=== PATIENT | female | born 1975 | race African-American/Black ===

== ENCOUNTER 2021-01-15 21:26 | Emergency (ER) | payer OTHER ==
[~2021-01-15] VITALS: Ht 167.6 cm; Wt 77.0 kg
[2021-01-15] MEDS ORDERED: DIPH25TA62 MT (23:23)
[2021-01-15] MEDS ORDERED: P50 MT (23:23)
[2021-01-16 00:07] VITALS: BP 106/70
== END 2021-01-16 00:12 | disposition home or self-care (01) ==
LOC: EDBD 21:26 → ER 21:26
DX: L50.9 Urticaria, unspecified (principal)
CPT/HCPCS: 99283